=== PATIENT | female | born 2000 | race Two or more races ===

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

== ENCOUNTER 2021-03-06 08:43 | Emergency (ER) | payer OTHER ==
[~2021-03-06] VITALS: Ht 157.5 cm; Wt 47.6 kg
== END 2021-03-06 12:44 | disposition home or self-care (01) ==
LOC: EMR PED 08:43
DX: U07.1 COVID-19 (principal); B96.0 Mycoplasma pneumoniae [M. pneumoniae] as the cause of diseases classified elsewhere; R50.9 Fever, unspecified; J06.9 Acute upper respiratory infection, unspecified

== ENCOUNTER 2021-08-10 23:56 | Emergency (ER) | payer OTHER ==
[~2021-08-10] VITALS: Ht 154.9 cm; Wt 52.2 kg
[2021-08-11] MEDS ORDERED: PEPCID AC20 MG PO (03:24)
[2021-08-11] MEDS ORDERED: NAPROXEN500 MG PO (03:24)
== END 2021-08-11 03:33 | disposition home or self-care (01) ==
LOC: ER 23:56 → EMR PED 23:59 → ER 23:59 → EMR PED 08-11 03:33
DX: R10.31 Right lower quadrant pain (principal); Z20.822 Contact with and (suspected) exposure to COVID-19

== ENCOUNTER 2023-01-31 00:22 | Emergency (ER) | payer OTHER ==
[~2023-01-31] VITALS: Ht 152.4 cm; Wt 48.5 kg
[~2023-01-31 00:22] MED LIST: NAPROXEN500 MG PO; PEPCID AC20 MG PO
[2023-01-31] MEDS ORDERED: PRENA1 TRUE CO1 EACH (00:30)
[2023-01-31 03:22] LABS: HEMATOCRIT 31.5 % (36.0-45.00); HEMOGLOBIN 10.9 g/dL (12.0-15.00); MEAN CELL VOLUME 88.9 fL (80.00-100.00); MEAN CORPUSCULAR HEMOGLOBIN 30.6 pg (27.00-32.0); MEAN CORPUSCULAR HGB CONC 34.5 g/dl (32.0-36.0); PLATELET COUNT 193 K/uL (150-450); RED BLOOD COUNT 3.55 M/uL (4.00-6.00); RED CELL DISTRIBUTION WIDTH 13.2 % (11.5-14.5)
[2023-01-31 03:31] LABS: CALCIUM 9.6 mg/dL (8.5-10.1); CREATININE SERUM 0.61 mg/dL (0.55-1.02); GFR 122.65; POTASSIUM 3.82 mEq/L (3.5-5.1)
== END 2023-01-31 06:58 | disposition home or self-care (01) ==
LOC: ER 00:23
DX: O21.0 Mild hyperemesis gravidarum (principal); Z3A.12 12 weeks gestation of pregnancy

== ENCOUNTER 2023-07-03 04:25 | Outpatient (CLI) | payer OTHER ==
[~2023-07-03] VITALS: Ht 157.5 cm; Wt 61.7 kg
[~2023-07-03 04:25] MED LIST changes: +FOLIC ACID20 MG PO; +PRENA1 TRUE CO1 EACH
[2023-07-03] MEDS ORDERED: CEFAZOLIN SODIUM 1,000 MG VIAL IV ONE (05:00)
[2023-07-03] MEDS ORDERED: RINGERS SOLUTION,LACTATED 1,000 ML IV SCH (05:00)
[2023-07-03] MEDS ORDERED: TERBUTALINE SULFATE 1 MG/ML AMPUL SUBCUTANEO ONE (05:00)
[2023-07-03 06:00] LABS: URINE APPEARANCE Clear; URINE BILIRRUBIN Negative (NEGATIVE); URINE BLOOD Negative; URINE COLOR Yellow; URINE GLUCOSE Negative (NEGATIVE); URINE LEUKOCYTE Small; URINE NITRATE Negative; URINE PROTEIN Negative (NEGATIVE)
[2023-07-03 06:03] LABS: URINE BACTERIA 1339.1 uL (0.0-1933); URINE EPITHELIAL CELLS 36.3 uL (0.0-38.8); URINE RBC 2.5 uL (0.0-20.8); URINE WBC 88.8 uL (0.0-23.2)
[2023-07-03 06:30] LABS: HEMATOCRIT 31.5 % (36.0-45.00); HEMOGLOBIN 10.4 g/dL (12.0-15.00); MEAN CELL VOLUME 88.1 fL (80.00-100.00); MEAN CORPUSCULAR HEMOGLOBIN 29.2 pg (27.00-32.0); MEAN CORPUSCULAR HGB CONC 33.1 g/dl (32.0-36.0); PLATELET COUNT 179 K/uL (150-450); RED BLOOD COUNT 3.58 M/uL (4.00-6.00); RED CELL DISTRIBUTION WIDTH 13.1 % (11.5-14.5)
[2023-07-03 07:21] LABS: ALBUMIN 2.7 gm/dL (3.4-5.0); BILIRUBIN TOTAL 0.22 mg/dL (0.3-1.2); CALCIUM 8.8 mg/dL (8.5-10.1); CREATININE SERUM 0.64 mg/dL (0.55-1.02); GFR 116.04; GLOBULINA 3.8 G/DL (2.4-3.5); POTASSIUM 3.72 mEq/L (3.5-5.1); TOTAL PROTEIN 6.5 gm/dL (6.4-8.2)
[2023-07-03] MEDS ORDERED: CEFAZOLIN SODIUM 1,000 MG VIAL IV SCH (12:00)
== END 2023-07-03 09:03 | disposition home or self-care (01) ==
LOC: OBS/DEL 04:25
PROVIDERS: ATTEND Specialist
DX: O26.893 Other specified pregnancy related conditions, third trimester (principal); Z3A.34 34 weeks gestation of pregnancy; R10.2 Pelvic and perineal pain